=== PATIENT | female | born 1960 | race Caucasian/White ===

== ENCOUNTER 2019-12-16 00:48 | Inpatient (IN) | payer MEDICAID ==
[~2019-12-16] VITALS: Ht 157.5 cm; Wt 60.5 kg
[2019-12-16 01:32] LABS: BASOPHILS 0.1 % (0-2); EOSINOPHILS 0 % (0-7); HEMATOCRIT 40.7 % (36.0-48.0); HEMOGLOBIN 14.9 g/dL (12-16); IMMATURE GRANULOCYTES 0.4 % (0-5); LYMPHOCYTES 19.3 % (15-50); MCH 30.2 pg (26.0-34.0); MCHC 36.6 g/dL (31.0-37.0); MCV 82.6 fL (80.0-100.0); NEUTROPHILS 67.2 % (40-80); PLATELET COUNT 240 10x3/uL (130-400); RBC 4.93 10x6/uL (4.00-5.40); RDW 12.4 % (11.5-14.5); WBC 6.9 10x3/uL (4.8-10.8)
[2019-12-16 01:40] LABS: CALC OSMOLALITY 255 mosm/kg (275-300); CALCIUM 9.1 mg/dL (8.5-10.1); CARBON DIOXIDE 28.8 mmol/L (21.0-32.0); CHLORIDE - SERUM 92 mmol/L (98-107); CREATININE - SERUM 0.9 mg/dL (0.6-1.3); GLUCOSE 112 mg/dL (74-106); POTASSIUM - SERUM 3.6 mmol/L (3.5-5.1); SODIUM 128 mmol/L (136-145); UREA NITROGEN 8 mg/dL (7-18); eGFR NON AFRICAN AMERICAN 68 mL/min (90-120)
[2019-12-16 01:42] LABS: APTT 25.9 SECONDS (22.8-39.4); INR 0.87 (0.85-1.17); PROTIME 11.8 SECONDS (11.6-15.0)
[2019-12-16 01:43] LABS: D-DIMER-QUANTITATIVE 0.42 ug/mLFEU (0.20-0.54)
[2019-12-16 02:09] LABS: ALBUMIN 3.7 g/dL (3.4-5.0); ALKALINE PHOSPHATASE 112 U/L (30-120); ALT (SGPT) 32 U/L (10-68); BILIRUBIN - TOTAL 0.46 mg/dL (0.2-1.3); CKMB 0.8 U/L (0.0-3.6); CREATINE KINASE 49 UL (21-215); PRO BNP 46 pg/mL (0-125); PROTEIN - SERUM 7.8 g/dL (6.4-8.2); TROPONIN-I < 0.017 ng/mL (0.000-0.060)
[2019-12-16] MEDS ORDERED: LISINOPRIL10 MG PO (03:06)
[2019-12-16] MEDS ORDERED: LISINOPRIL-HCT1 EAC4 PO (03:06)
[2019-12-16] MEDS ORDERED: K-TAB10 MEQ PO (03:07)
[2019-12-16] MEDS ORDERED: CALCIUM 600 +1 EAC3 PO (03:07)
[2019-12-16] MEDS ORDERED: LOPRESSOR25 MG PO (03:07)
[2019-12-16] MEDS ORDERED: SYNTHROID100 MCG PO (03:08)
[2019-12-16] MEDS ORDERED: CRESTOR5 MG PO (03:08)
--- NOTE | 2019-12-16 03:20 | NUR ---
PT ARRIVED TO THE FLOOR BY WHEELCHAIR. ALERT AND ORIENTED. NO SIGNS OF DISTRESS. BREATHING EVEN AND UNLABORED. PT STATES NO NEEDS AT THIS TIME. IV SITE 2OG RT HAND DRESSING CLEAN DRY AND INTACT. NS@125. 2LO2 PRN. SKIN CLEAN DRY AND INTACT. BOWEL SOUNDS ACTIVE. NO LOWER LEG SWELLING PRESENT. PT STATES DIARRHEA X4 TIMES TODAY. WILL CONTINUE PLAN OF CARE. CALL LIGHT IN REACH. BED LOWERED AND LOCKED. SIGNIFICANT OTHER AT BEDSIDE.
[2019-12-16 03:29] VITALS: BP 120/74; Ht 157.5 cm; Wt 60.5 kg
[2019-12-16 04:00] VITALS: BP 110/66
[2019-12-16 09:18] VITALS: BP 115/67
[2019-12-16 13:06] VITALS: BP 127/64
[2019-12-16 14:12] LABS: CKMB 0.4 U/L (0.0-3.6); CREATINE KINASE 49 UL (21-215); MAGNESIUM - SERUM 1.8 mg/dL (1.8-2.4)
[2019-12-16 14:13] LABS: TROPONIN-I < 0.017 ng/mL (0.000-0.060)
[2019-12-16 16:56] VITALS: BP 131/67
--- NOTE | 2019-12-16 17:38 | NUR ---
I have reviewed this patient and I concur with the Shift Assessment completed by the Licensed Practical Nurse today this shift.
[2019-12-16 19:39] LABS: CKMB 0.4 U/L (0.0-3.6); CREATINE KINASE 46 UL (21-215)
[2019-12-16 19:42] LABS: TROPONIN-I < 0.017 ng/mL (0.000-0.060)
[2019-12-16 20:00] VITALS: BP 122/68
[2019-12-17] VITALS: BP 105/57
[2019-12-17 01:36] LABS: CKMB 0.3 U/L (0.0-3.6); CREATINE KINASE 37 UL (21-215)
[2019-12-17 01:37] LABS: TROPONIN-I < 0.017 ng/mL (0.000-0.060)
[2019-12-17 04:00] VITALS: BP 113/6
--- NOTE | 2019-12-17 05:02 | NUR ---
[facility]
[2019-12-17 05:14] LABS: BASOPHILS 0.3 % (0-2); EOSINOPHILS 0 % (0-7); HEMATOCRIT 36.9 % (36.0-48.0); HEMOGLOBIN 12.9 g/dL (12-16); IMMATURE GRANULOCYTES 0.5 % (0-5); LYMPHOCYTES 19.2 % (15-50); MCH 29.4 pg (26.0-34.0); MCV 84.1 fL (80.0-100.0); MEAN PLATELET VOLUME 9.1 fL (7.4-10.4); MONOCYTES 8.1 % (2-11); NEUTROPHILS 71.9 % (40-80); PLATELET COUNT 234 10x3/uL (130-400); RBC 4.39 10x6/uL (4.00-5.40); RDW 12.8 % (11.5-14.5)
[2019-12-17 05:21] LABS: WBC 3.9 10x3/uL (4.8-10.8)
[2019-12-17 05:44] LABS: ALKALINE PHOSPHATASE 86 U/L (30-120); ALT (SGPT) 27 U/L (10-68); BILIRUBIN - TOTAL 0.33 mg/dL (0.2-1.3); CALC OSMOLALITY 276 mosm/kg (275-300); CHLORIDE - SERUM 105 mmol/L (98-107); CREATININE - SERUM 0.8 mg/dL (0.6-1.3); GLUCOSE 116 mg/dL (74-106); POTASSIUM - SERUM 3.7 mmol/L (3.5-5.1); PROTEIN - SERUM 6.7 g/dL (6.4-8.2); SODIUM 139 mmol/L (136-145); UREA NITROGEN 6 mg/dL (7-18); eGFR NON AFRICAN AMERICAN 78 mL/min (90-120)
[2019-12-17 09:03] VITALS: BP 109/64
--- NOTE | 2019-12-17 09:42 | NUR ---
PT SITTING UP IN BED NO S/SX OF DISTRESS, ADMINISTERED SCHEDULED MEDICATIONS, PT REQUESTED MEDICATION FOR YEAST INFECTION, STATED SHE CAN FEEL ONE STARTING TO COME ON, TOLD PT I WILL MENTION REQUEST TO NURSE PRACTITIONER WHEN SHE COMES TO THE FLOOR. NO OTHER NEEDS VOICED, CONTINUE WITH PLAN OF CARE
[2019-12-17 12:10] VITALS: BP 122/64
[2019-12-17 17:24] VITALS: BP 136/67
--- NOTE | 2019-12-17 18:45 | NUR ---
I have reviewed this patient and I concur with the Shift Assessment completed by the Licensed Practical Nurse today this shift.
[2019-12-17 20:00] VITALS: BP 138/61
--- NOTE | 2019-12-17 20:00 | NUR ---
ALERT RESTING IN BED DENIES PAIN OR NEEDS AT THIS TIME, SEE SHIFT ASSESSMENT, CALL LIGHT IN REACH
[2019-12-18 04:00] VITALS: BP 132/69
[2019-12-18 05:44] LABS: BASOPHILS 0 % (0-2); EOSINOPHILS 0 % (0-7); HEMATOCRIT 36.3 % (36.0-48.0); HEMOGLOBIN 12.6 g/dL (12-16); IMMATURE GRANULOCYTES 1.3 % (0-5); LYMPHOCYTES 13.6 % (15-50); MCH 29.6 pg (26.0-34.0); MCHC 34.7 g/dL (31.0-37.0); MCV 85.2 fL (80.0-100.0); MEAN PLATELET VOLUME 8.9 fL (7.4-10.4); MONOCYTES 4.1 % (2-11); PLATELET COUNT 228 10x3/uL (130-400); RBC 4.26 10x6/uL (4.00-5.40); RDW 13.1 % (11.5-14.5)
[2019-12-18 05:47] LABS: WBC 6.4 10x3/uL (4.8-10.8)
[2019-12-18 05:56] LABS: ALBUMIN 2.9 g/dL (3.4-5.0); ALKALINE PHOSPHATASE 76 U/L (30-120); ALT (SGPT) 32 U/L (10-68); CALCIUM 8.9 mg/dL (8.5-10.1); CARBON DIOXIDE 27.8 mmol/L (21.0-32.0); CHLORIDE - SERUM 107 mmol/L (98-107); CREATININE - SERUM 0.8 mg/dL (0.6-1.3); GLUCOSE 124 mg/dL (74-106); POTASSIUM - SERUM 3.8 mmol/L (3.5-5.1); PROTEIN - SERUM 6.4 g/dL (6.4-8.2); SODIUM 142 mmol/L (136-145); eGFR NON AFRICAN AMERICAN 78 mL/min (90-120)
[2019-12-18 06:18] LABS: CALC OSMOLALITY 282 mosm/kg (275-300); UREA NITROGEN 9 mg/dL (7-18)
--- NOTE | 2019-12-18 07:53 | NUR ---
PATIENT IS WITHOUT DISTRESS.DROPLET ISOLATION MAINTAINED
--- NOTE | 2019-12-18 08:23 | NUR ---
I have reviewed this patient and I concur with the Shift Assessment completed by the Licensed Practical Nurse today this shift.
[2019-12-18 08:44] VITALS: BP 130/75
[2019-12-18] MEDS ORDERED: MUCINEX600 MG PO (09:40)
[2019-12-18] MEDS ORDERED: TESSALON PERLE100 MG PO (09:40)
[2019-12-18] MEDS ORDERED: PREDNISONE10 MG PO (09:41)
[2019-12-18] MEDS ORDERED: OMNICEF300 MG PO (09:41)
[2019-12-18] MEDS ORDERED: ZITHROMAX500 MG PO (09:41)
[2019-12-18] MEDS ORDERED: FLORAJEN3 CAPS460 MG PO (09:41)
[2019-12-18] MEDS ORDERED: PHENERGAN6.25 MG/5 PO (09:42)
[2019-12-18] MEDS ORDERED: DIFLUCAN150 MG PO (09:42)
--- NOTE | 2019-12-18 10:01 | NUR ---
NUTRITION F/U CHART REVIEWED, PT REMAINS IN ISOLATION. AHA DIET WITH ~50% INTAKE RECENT MEALS. WILL CONTINUE TO PROVIDE DIET, MONITOR INTAKE. RD FOLLOWING
--- NOTE | 2019-12-18 11:00 | NUR ---
PT SITTING UP IN BED HAVING BREATHING TRATMENT, ADVISED PT DC ORDERS IN, PT ASKED IV BE REMOVED, PT IV REMOVED WITH CATHETER INTACT, NO S/SX OF DISTRESS, NO NEEDS VOICED, PENDING DC PAPERS. CONTINUE WITH PLAN OF CARE
[2019-12-18] MEDS ORDERED: CATAPRES0.1 MG PO (11:41)
[2019-12-19 03:07] LABS: ALP - ISO (ALP) 110 IU/L (39-117); ALP - ISO (BONE) FRACTION 20 % (14-68); ALP - ISO (LIVER) FRACTION 80 % (18-85); ALP - ISO(INTESTINAL) FRACTION 0 % (0-18)
--- NOTE | 2019-12-23 06:51 | MORECARE ---
CASE MANAGEMENT DISCHARGE SUMMARY PATIENT: HOLLY ACUNA UNIT: [id number] ADM DATE: 12/16/19 AGE: 59 : 64 SEX: F ROOM/BED: [facility] AUTHOR: CANDACE ARROYO PHYSICIAN: REFERRING PHYSICIAN: LALO MCGILL MD DATE OF SERVICE: 12/23/19 Discharge Plan Patient Name: HOLLY ACUNA [facility] : 1960 Planned Disposition: Anticipated Discharge Date: Discharge Date: 12/18/2019 Expected LOS: 0 Initial Reviewer: [email or web address] Initial Review Date: 12/23/2019 Generated: 12/23/19 7:51 am Patient Name: HOLLY ACUNA Page [id number] at 0651 All edits/amendments must be made on the electronic document DICTATION DATE: 12/23/19650 NAIL TECH: YUE 12/23/19 0651 RPT#: [id number] DC DATE:12/18/19 STATUS: DIS IN [facility] [address] [place] [address] END OF REPORT
== END 2019-12-18 12:01 | disposition home or self-care (01) | DRG 193 ==
LOC: D.ER 00:48 → D.MS 01:44
PROVIDERS: Family Medicine; ADMIT Emergency Medicine; ATTEND Emergency Medicine
DX: J11.00 Influenza due to unidentified influenza virus with unspecified type of pneumonia (principal); J96.01 Acute respiratory failure with hypoxia; J20.9 Acute bronchitis, unspecified; E86.0 Dehydration; I10 Essential (primary) hypertension; E78.5 Hyperlipidemia, unspecified; E03.9 Hypothyroidism, unspecified; H26.9 Unspecified cataract